=== PATIENT | female | born 1955 | race Caucasian/White ===

== ENCOUNTER 2017-06-19 19:30 | Outpatient (CLI) | payer BC | END 2017-06-19 19:31 | disposition home or self-care (01) | LOC: SLEEPLAB 19:30 | PROVIDERS: ATTEND Family Medicine | DX: G47.33 Obstructive sleep apnea (adult) (pediatric) (principal); E66.9 Obesity, unspecified | CPT/HCPCS: 95811 ==

== ENCOUNTER 2018-01-16 13:28 | Outpatient (CLI) | payer BC | END 2018-01-16 13:29 | disposition home or self-care (01) | LOC: BICRAD 13:28 | PROVIDERS: ATTEND Chiropractor | DX: M40.03 Postural kyphosis, cervicothoracic region (principal); M47.892 Other spondylosis, cervical region; M43.12 Spondylolisthesis, cervical region; M99.04 Segmental and somatic dysfunction of sacral region | CPT/HCPCS: 72040; 72100 ==

== ENCOUNTER 2018-02-17 15:13 | Outpatient (CLI) | payer BC ==
--- NOTE | 2018-02-17 15:54 | RAD ---
RIGHT HIP 2 VIEWS: HISTORY: Right hip pain. FINDINGS/IMPRESSION: There are mild degenerative changes. No fracture, dislocation, or bone destruction is identified. POS: ESTRELLITA
--- NOTE | 2018-02-17 15:57 | RAD ---
THREE VIEWS SACROILIAC JOINTS: Date: 02-17-18 History: Right hip pain and joint pain for a few months, no known injury. FINDINGS: Sacroiliac joints are symmetric in appearance bilaterally. No erosions are seen. Visualized osseous s tructures have a normal CT appearance. Phleboliths overlie the pelvis. IMPRESSION: Symmetric and normal appearance of the sacroiliac joints bilaterally. POS: MOMO
== END 2018-02-17 15:14 | disposition home or self-care (01) ==
LOC: SCSRAD 15:13
PROVIDERS: ATTEND Family Medicine
DX: M53.3 Sacrococcygeal disorders, not elsewhere classified (principal); M25.551 Pain in right hip; M16.11 Unilateral primary osteoarthritis, right hip
CPT/HCPCS: 72202

== ENCOUNTER 2025-05-28 07:52 | Outpatient (CLI) | payer MEDICARE | END 2025-05-28 07:53 | disposition home or self-care (01) | LOC: SCSBT 07:52 | PROVIDERS: ATTEND Student in an Organized Health Care Education/Training Program | DX: Z78.0 Asymptomatic menopausal state (principal); M85.89 Other specified disorders of bone density and structure, multiple sites | CPT/HCPCS: 77080 ==